=== PATIENT | male | born 1980 | race Caucasian/White ===

== ENCOUNTER 2017-10-11 11:22 | Emergency (ER) | payer MEDICAID ==
[~2017-10-11] VITALS: Ht 170.2 cm; Wt 85.3 kg
[2017-10-11 11:26] VITALS: Ht 170.2 cm; Wt 85.3 kg
[2017-10-11 13:13] VITALS: BP 139/81
== END 2017-10-11 13:13 | disposition home or self-care (01) ==
LOC: ED 11:22
DX: S61.213A Laceration without foreign body of left middle finger without damage to nail, initial encounter (principal); W26.8XXA Contact with other sharp object(s), not elsewhere classified, initial encounter; Y93.89 Activity, other specified; Y99.8 Other external cause status; Y92.89 Other specified places as the place of occurrence of the external cause
CPT/HCPCS: 90715; A4570; J0696; J2001

== ENCOUNTER 2017-10-13 20:02 | Emergency (ER) | payer MEDICAID ==
[~2017-10-13] VITALS: Ht 157.5 cm; Wt 84.9 kg
[2017-10-13 20:59] VITALS: BP 141/98; Ht 157.5 cm; Wt 84.9 kg
== END 2017-10-13 23:36 | disposition home or self-care (01) ==
LOC: ED 20:02
DX: S61.215D Laceration without foreign body of left ring finger without damage to nail, subsequent encounter (principal); X58.XXXD Exposure to other specified factors, subsequent encounter

== ENCOUNTER 2017-10-20 15:04 | Emergency (ER) | payer MEDICAID ==
[~2017-10-20] VITALS: Ht 162.6 cm; Wt 82.5 kg
[2017-10-20 15:14] VITALS: BP 150/82; Ht 162.6 cm; Wt 82.5 kg
== END 2017-10-20 18:08 | disposition home or self-care (01) ==
LOC: ED 15:04
DX: S61.215D Laceration without foreign body of left ring finger without damage to nail, subsequent encounter (principal); X58.XXXD Exposure to other specified factors, subsequent encounter
CPT/HCPCS: A4570